=== PATIENT | female | born 1945 ===

== ENCOUNTER → 2022-06-05 08:00 | Outpatient (CLI) | payer OTHER ==
[~2022-06-05] VITALS: Ht 167.6 cm; Wt 68.0 kg
[~2022-06-05 08:00] MED LIST: GLIMEPIRIDE4 M1 PO; LOSARTAN POTAS100 MG PO; NABUMETONE500 MG PO; SYNTHROID50 MCG PO
== END | disposition home or self-care (01) ==
LOC: LAB 08:00 → SURG 06-08 07:00 → EDSTATUS 06-08 11:00 → SURG 06-08 11:00
PROVIDERS: ATTEND Obstetrics & Gynecology Gynecologic Oncology
DX: N83.292 Other ovarian cyst, left side (principal); Z01.812 Encounter for preprocedural laboratory examination; Z20.828 Contact with and (suspected) exposure to other viral communicable diseases